=== PATIENT | female | born 1980 | race Caucasian/White ===

== ENCOUNTER 2017-12-19 18:26 | Inpatient (IN) | payer OTHER ==
[~2017-12-19] VITALS: Ht 152.4 cm; Wt 60.1 kg
[~2017-12-19 18:26] MED LIST: LEVOTHYROXIN0.075 M1 PO; TRAZODONE HCL100 MG PO
[2017-12-19 18:46] VITALS: Ht 152.4 cm; Wt 60.1 kg
[2017-12-19 19:57] LABS: BASOPHIL % 0.5 % (0-2); PLATELET COUNT 329 x10^3mcL (130-400); RED CELL DISTRIBUTION WIDTH 13.7 % (11.5-14.5)
[2017-12-19 20:06] LABS: CALCIUM 8.7 mg/dL (8.5-10.1); CARBON DIOXIDE 28.2 mmol/L (21-32); CHLORIDE SERUM 103 mmol/L (98-107); CREATININE SERUM 0.6 mg/dL (0.6-1.0); GFR1 > 60 mL/min; GLUCOSE SERUM 86 mg/dL (74-106); POTASSIUM SERUM 3.5 mmol/L (3.5-5.1); SODIUM SERUM 138 mmol/L (136-145)
[2017-12-19 20:10] LABS: ALBUMIN 3.8 g/dL (3.4-5.0); ALKALINE PHOSPHATASE 70 U/L (46-116); ALT/SGPT 18 U/L (14-59); AST/SGOT 12 U/L (15-37); BILIRUBIN TOTAL 0.2 mg/dL (0.20-1.00); HDL CHOLESTEROL 55 mg/dL (40-60); LIPASE 166 IU/L (73-393); TOTAL PROTEIN, SERUM 7.6 g/dL (6.4-8.2); TRIGLYCERIDES 56 mg/dL (<150)
[2017-12-19 20:23] LABS: CHOLESTEROL 128 mg/dL (<200); CHOLESTEROL/HDL RATIO 2.3; T3 TOTAL 1.06 ng/mL
[2017-12-19 20:24] LABS: FREE T4 1.66 ng/dL (0.76-1.46); FREE THYROXINE INDEX 4.1 ug/dL (1.4-4.5); T4(THYROXINE) 11.7 ug/dL (4.7-13.3)
[2017-12-19 23:23] LABS: microscopic required? NO
[2017-12-19 23:39] LABS: UA SPECIFIC GRAVITY <=1.005 (1.005-1.035); urine erythrocyte NEGATIVE (NEGATIVE)
[2017-12-19 23:52] LABS: AMPHETAMINE QUAL UR NONE DETECTED (See below)
[2017-12-20 01:26] VITALS: BP 98/68
[2017-12-20 02:02] LABS: PHOSPHOROUS 4.7 mg/dL (2.5-4.9)
[2017-12-20 05:46] VITALS: BP 95/62
[2017-12-20 06:42] LABS: BASOPHIL % 0.5 % (0-2); PLATELET COUNT 289 x10^3mcL (130-400); RED CELL DISTRIBUTION WIDTH 13.6 % (11.5-14.5)
[2017-12-20 07:06] LABS: CALCIUM 8.3 mg/dL (8.5-10.1); CARBON DIOXIDE 25.9 mmol/L (21-32); CHLORIDE SERUM 107 mmol/L (98-107); CREATININE SERUM 0.6 mg/dL (0.6-1.0); GFR1 > 60 mL/min; GLUCOSE SERUM 80 mg/dL (74-106); POTASSIUM SERUM 3.5 mmol/L (3.5-5.1); SODIUM SERUM 140 mmol/L (136-145)
[2017-12-20 09:15] VITALS: BP 115/78
[2017-12-20 11:33] VITALS: BP 115/78
== END 2017-12-20 12:05 | disposition home or self-care (01) | DRG 203 ==
LOC: ED 18:26 → DU 12-20 00:24
PROVIDERS: Family Medicine; Specialist
DX: M94.0 Chondrocostal junction syndrome [Tietze] (principal); E89.0 Postprocedural hypothyroidism; R53.1 Weakness; J45.20 Mild intermittent asthma, uncomplicated; Z73.3 Stress, not elsewhere classified; Z86.73 Personal history of transient ischemic attack (TIA), and cerebral infarction without residual deficits; Z88.6 Allergy status to analgesic agent; Z88.0 Allergy status to penicillin; Z88.8 Allergy status to other drugs, medicaments and biological substances; Z90.710 Acquired absence of both cervix and uterus; F32.9 Major depressive disorder, single episode, unspecified; G43.909 Migraine, unspecified, not intractable, without status migrainosus; Z85.43 Personal history of malignant neoplasm of ovary
CPT/HCPCS: 83880; 84439; J2270; J2405; J3010; J7030; Q0092; Q9967

== ENCOUNTER 2018-03-14 08:56 | Emergency (ER) | payer OTHER ==
[~2018-03-14] VITALS: Ht 152.4 cm; Wt 57.6 kg
[2018-03-14 09:09] VITALS: Ht 152.4 cm; Wt 57.6 kg
[2018-03-14 10:23] LABS: CALCIUM 9.2 mg/dL (8.5-10.1); CARBON DIOXIDE 25.9 mmol/L (21-32); CHLORIDE SERUM 101 mmol/L (98-107); CREATININE SERUM 0.7 mg/dL (0.6-1.0); GFR1 > 60 mL/min; GLUCOSE SERUM 94 mg/dL (74-106); POTASSIUM SERUM 3.6 mmol/L (3.5-5.1); SODIUM SERUM 138 mmol/L (136-145)
[2018-03-14 10:33] LABS: UA SPECIFIC GRAVITY 1.015 (1.005-1.035); microscopic required? YES; urine erythrocyte TRACE (NEGATIVE)
[2018-03-14 10:41] LABS: ALBUMIN 4.2 g/dL (3.4-5.0); ALKALINE PHOSPHATASE 61 U/L (46-116); ALT/SGPT 29 U/L (14-59); AST/SGOT 16 U/L (15-37); BILIRUBIN TOTAL 0.4 mg/dL (0.20-1.00)
[2018-03-14 10:42] LABS: TOTAL PROTEIN, SERUM 8.3 g/dL (6.4-8.2)
[2018-03-14 10:51] LABS: AMPHETAMINE QUAL UR NONE DETECTED (See below)
[2018-03-14 10:54] LABS: BASOPHIL % 0.2 % (0-2); PLATELET COUNT 275 x10^3mcL (130-400); RED CELL DISTRIBUTION WIDTH 13.7 % (11.5-14.5)
[2018-03-14 11:42] VITALS: BP 99/68
== END 2018-03-14 11:42 | disposition home or self-care (01) ==
LOC: ED 08:56
PROVIDERS: Emergency Medicine
DX: J11.1 Influenza due to unidentified influenza virus with other respiratory manifestations (principal); M54.5 Low back pain
CPT/HCPCS: 87804; J1885; J2405

== ENCOUNTER 2018-09-13 02:40 | Emergency (ER) | payer OTHER ==
[~2018-09-13] VITALS: Ht 152.4 cm; Wt 63.5 kg
[2018-09-13 02:44] VITALS: Ht 152.4 cm; Wt 63.5 kg
[2018-09-13 03:17] LABS: BASOPHIL % 0.3 % (0-2); PLATELET COUNT 283 x10^3mcL (130-400); RED CELL DISTRIBUTION WIDTH 13.1 % (11.5-14.5)
[2018-09-13 03:57] LABS: CALCIUM 8.8 mg/dL (8.5-10.1); CHLORIDE SERUM 107 mmol/L (98-107); CREATININE SERUM 0.7 mg/dL (0.6-1.0); GFR1 > 60 mL/min; GLUCOSE SERUM 97 mg/dL (74-106); POTASSIUM SERUM 3.5 mmol/L (3.5-5.1); SODIUM SERUM 142 mmol/L (136-145)
[2018-09-13 04:02] LABS: ALBUMIN 3.7 g/dL (3.4-5.0); ALKALINE PHOSPHATASE 92 U/L (46-116); ALT/SGPT 14 U/L (14-59); AST/SGOT 8 U/L (15-37); BILIRUBIN TOTAL 0.22 mg/dL (0.20-1.00); LIPASE 139 IU/L (73-393); TOTAL PROTEIN, SERUM 7.3 g/dL (6.4-8.2)
[2018-09-13 05:30] VITALS: BP 97/56
== END 2018-09-13 05:30 | disposition home or self-care (01) ==
LOC: ED 02:40
PROVIDERS: Emergency Medicine
DX: R10.9 Unspecified abdominal pain (principal); M62.830 Muscle spasm of back; J45.909 Unspecified asthma, uncomplicated; F32.9 Major depressive disorder, single episode, unspecified; G43.909 Migraine, unspecified, not intractable, without status migrainosus; Z90.712 Acquired absence of cervix with remaining uterus; Z85.43 Personal history of malignant neoplasm of ovary; Z88.0 Allergy status to penicillin; Z88.6 Allergy status to analgesic agent; Z88.5 Allergy status to narcotic agent
CPT/HCPCS: J1885; J2270; J2405

== ENCOUNTER 2018-11-19 10:45 | Emergency (ER) | payer OTHER ==
[~2018-11-19] VITALS: Ht 152.4 cm; Wt 54.9 kg
[2018-11-19 10:48] VITALS: Ht 152.4 cm; Wt 54.9 kg
[2018-11-19 11:29] LABS: BASOPHIL % 0.4 % (0-2); PLATELET COUNT 274 x10^3mcL (130-400); RED CELL DISTRIBUTION WIDTH 13.4 % (11.5-14.5)
[2018-11-19 11:31] LABS: CALCIUM 8.8 mg/dL (8.5-10.1); CARBON DIOXIDE 27.7 mmol/L (21-32); CHLORIDE SERUM 106 mmol/L (98-107); CREATININE SERUM 0.5 mg/dL (0.6-1.0); GFR1 > 60 mL/min; GLUCOSE SERUM 85 mg/dL (74-106); POTASSIUM SERUM 3.8 mmol/L (3.5-5.1); SODIUM SERUM 142 mmol/L (136-145)
[2018-11-19 11:36] LABS: ALKALINE PHOSPHATASE 67 U/L (46-116); ALT/SGPT 13 U/L (14-59); AST/SGOT 17 U/L (15-37); BILIRUBIN TOTAL 0.48 mg/dL (0.20-1.00); TOTAL PROTEIN, SERUM 7.6 g/dL (6.4-8.2)
[2018-11-19 12:32] VITALS: BP 120/75
== END 2018-11-19 12:32 | disposition home or self-care (01) ==
LOC: ED 10:45
PROVIDERS: Emergency Medicine
DX: M79.89 Other specified soft tissue disorders (principal); M54.12 Radiculopathy, cervical region; J45.909 Unspecified asthma, uncomplicated; G43.909 Migraine, unspecified, not intractable, without status migrainosus; F32.9 Major depressive disorder, single episode, unspecified; Z88.0 Allergy status to penicillin; Z88.6 Allergy status to analgesic agent; Z88.5 Allergy status to narcotic agent; Z90.711 Acquired absence of uterus with remaining cervical stump; Z98.890 Other specified postprocedural states
CPT/HCPCS: J1885; Q0092

== ENCOUNTER 2019-07-16 10:57 | Emergency (ER) | payer OTHER ==
[~2019-07-16] VITALS: Ht 157.5 cm; Wt 61.2 kg
[2019-07-16 11:13] VITALS: Ht 157.5 cm; Wt 61.2 kg
[2019-07-16 12:07] LABS: microscopic required? YES; urine erythrocyte TRACE (NEGATIVE)
[2019-07-16 12:07] LABS: BASOPHIL % 0.4 % (0-2); PLATELET COUNT 323 x10^3mcL (130-400); RED CELL DISTRIBUTION WIDTH 12.7 % (11.5-14.5)
[2019-07-16 13:34] LABS: CALCIUM 9.2 mg/dL (8.5-10.1); CARBON DIOXIDE 28.1 mmol/L (21-32); CHLORIDE SERUM 103 mmol/L (98-107); CREATININE SERUM 0.6 mg/dL (0.6-1.0); GFR1 > 60 mL/min; GLUCOSE SERUM 86 mg/dL (74-106); POTASSIUM SERUM 4.3 mmol/L (3.5-5.1); SODIUM SERUM 139 mmol/L (136-145)
[2019-07-16 13:39] LABS: ALBUMIN 4.1 g/dL (3.4-5.0); ALKALINE PHOSPHATASE 59 U/L (46-116); ALT/SGPT 17 U/L (14-59); AST/SGOT 12 U/L (15-37); BILIRUBIN TOTAL 0.38 mg/dL (0.20-1.00); LIPASE 120 IU/L (73-393); TOTAL PROTEIN, SERUM 7.7 g/dL (6.4-8.2)
[2019-07-16 15:21] VITALS: BP 101/74
== END 2019-07-16 15:21 | disposition home or self-care (01) ==
LOC: ED 10:57
PROVIDERS: Emergency Medicine
DX: R10.13 Epigastric pain (principal); J45.901 Unspecified asthma with (acute) exacerbation; F32.9 Major depressive disorder, single episode, unspecified; E03.9 Hypothyroidism, unspecified; F17.210 Nicotine dependence, cigarettes, uncomplicated; G43.909 Migraine, unspecified, not intractable, without status migrainosus; Z71.6 Tobacco abuse counseling; Z90.710 Acquired absence of both cervix and uterus; Z86.73 Personal history of transient ischemic attack (TIA), and cerebral infarction without residual deficits; Z88.0 Allergy status to penicillin; Z88.6 Allergy status to analgesic agent; Z88.5 Allergy status to narcotic agent
CPT/HCPCS: 99406; J2405; J3490; Q9967

== ENCOUNTER 2019-07-17 02:06 | Inpatient (IN) | payer OTHER ==
[~2019-07-17] VITALS: Ht 152.4 cm; Wt 62.7 kg
[2019-07-17 02:14] VITALS: Ht 152.4 cm; Wt 62.7 kg
--- NOTE | 2019-07-17 02:45 | NUR ---
PT PRESENTS TO THE ED WITH C/O BUQ ABD THROBBING PAIN X4 DAYS. PER THE PT, SHE WAS HERE YESTERDAY FOR THE SAME SYMPTOMS AND WAS DC WITH A MEDICATION FOR GERD AND PEPTIC ULCERS, UNABLE TO RECALL NAME. PT DENIES TAKING ANY PAIN MEDICATED AT HOME. PT STS, " I FEEL LIKE I GOT PUNCHED IN THE STOMACH AND FEEL LIKE MY AIR WAS TAKEN OUT. I FEEL SOB.". PT'S SPO2 98% ON RA. PT ALSO C/O NAUSEA.
[2019-07-17 03:15] LABS: BASOPHIL % 0.6 % (0-2); PLATELET COUNT 322 x10^3mcL (130-400); RED CELL DISTRIBUTION WIDTH 12.6 % (11.5-14.5)
[2019-07-17 03:54] LABS: CALCIUM 8.5 mg/dL (8.5-10.1); CARBON DIOXIDE 25.4 mmol/L (21-32); CHLORIDE SERUM 104 mmol/L (98-107); CREATININE SERUM 0.6 mg/dL (0.6-1.0); GFR1 > 60 mL/min; GLUCOSE SERUM 92 mg/dL (74-106); POTASSIUM SERUM 3.4 mmol/L (3.5-5.1); SODIUM SERUM 138 mmol/L (136-145)
[2019-07-17 03:59] LABS: ALBUMIN 3.8 g/dL (3.4-5.0); ALKALINE PHOSPHATASE 58 U/L (46-116); ALT/SGPT 16 U/L (14-59); AST/SGOT 12 U/L (15-37); BILIRUBIN TOTAL 0.43 mg/dL (0.20-1.00); LIPASE 128 IU/L (73-393); TOTAL PROTEIN, SERUM 7.1 g/dL (6.4-8.2)
--- NOTE | 2019-07-17 04:30 | NUR ---
PT C/O PAIN TO RAC IV. FLUSHED 10 ML OF NS WITH NO S/S OF INFILTRATION NOTED, PT STS IT FEELS LIKE IT IS BURNING. RAC IV REMOVED AND NEW IV ESTRABLISHED TO THE LAC 20 GAUGE, FLUSHED 10 ML OF NS WITH NO S/S OF INFILTRATION NOTED.
--- NOTE | 2019-07-17 04:58 | NUR ---
PT ASSISTED TO THE RESTROOM, AMBULATED WITH A STEADY GAIT. ASSISTED BACK IN BED. CONNECTED TO FULL AIR TUBE RELEASER/CONTINOUS PULSE OXIMETRY
--- NOTE | 2019-07-17 05:30 | NUR ---
PT STS SHE GETS HIVES WHEN SHE TAKES HYDROCODONE. REPORTS SHE HAS TAKEN MORPHINE BEFORE WITH NO ADVERSE REACTION. DR. PAUL MADE AWARE
--- NOTE | 2019-07-17 05:50 | NUR ---
REPORT GIVEN TO PHU BARR FOR CONTINUITY OF CARE. ALL QUESTIONS/CONCERNS ADDRESSED.
--- NOTE | 2019-07-17 06:02 | NUR ---
PT TRANSFERRED AT THIS TIME VIA WHEELCHAIR. PT IS A/OX4. BREATHING IS E/U ON RA. LAC IV INTACT/SECURED, NO S/S OF INFILTRATION NOTED. NO ADVERSE EFFECT NOTED POST MORPHINE ADMINISTRATION. NO S/S OF ACUTE DISTRESS NOTED. PHU [facility] TO ASSUME CARE
[2019-07-17 06:07] VITALS: BP 96/51
--- NOTE | 2019-07-17 06:13 | NUR ---
RECEIVED PT FROM ER VIA WC, PT SEEN, ALERT AND ORIENTED X 4, VERY VERABLLY RESPONSIVE, DENIES HEADACHE OR DIZZINESS, BREATHING EVEN AND UNLABORED, LUNG SOUNDS CLEAR, ON ROOM AIR WITH NO RESP DISTRESS NOTED, MEDSURG PT, DENIES CHEST PAIN, PULSES PALPABLE, NO EDEMA NOTED, AMBULATORY WITH STEADY GAIT, ABD SOFT AND FLAT WITH ACTIVE BS, NO BM AT THIS TIME, C/O OF ABD PAIN WITH N/V FOR 4 DAYS, VOIDING FREELY, NO DISTRESS NOTED, WILL KEEP TO MONITOR.
--- NOTE | 2019-07-17 06:27 | NUR ---
spoke with dr barrios, no futhur orders at this time.
--- NOTE | 2019-07-17 07:04 | NUR ---
REPORT GIVEN TO MARIA [facility], ALL QUESTIONS ANSWERED AND CONCERNS ADDRESSED.
[2019-07-17 07:52] VITALS: BP 87/54
--- NOTE | 2019-07-17 07:57 | NUR ---
RECEVIED PT FROM PM NURSE. PATIENT WAS SEEN UP AND AMBULATING IN HER ROOM. PT IS A/O X 4. COOPERATIVE. NO SOB OR FACIAL DISTRESS NOTED. NO C/O PAIN. PATIENT IS MED SURG. DENIES C/P AND DIZZINESS. PULSES ARE EVEN AND PALPABLE. NO EDEMA NOTED. LUNG SOUNDS CTA ON RA. BOWEL SOUNDS ARE NORMACTIVE X4 QUADRANT. LAST BM WAS ON 07/16/19. HAS BRP, AND VOIDS FREELY. SKIN INTACT. IV ON LAC. SITE IS PATENT AND FREE FROM SIGNS OF INFECTION. BED AT THE LOWEST POSITION. INSTRUCTED PT TO USE THE CALL LIGHT SHOULD ASSISTANCE BE NEEDED. WILL CONTINUE TO MONITOR.
--- NOTE | 2019-07-17 08:15 | NUR ---
RECEIVED PATIENT FROM [facility]. PATIENT OBSERVED WALKING FROM BATHROOM TO BED. SPOKE WITH HER ABOUT PLAN OF CARE TODAY INCLUDING WAITING FOR DR MEAD AND DR CATALAN TO ARRIVE TO SEE PATIENT, PATIENT JUST ADMITTED LAST NIGHT. PATIENT VERBALIZES UNDERSTANDING, NO COMPLAINTS AT THIS TIME. WILL WAIT FOR DR CATALAN PATIENT IS NPO EXCEPT FOR MEDS. RE-EDUCATED PATIENT ON USE OF CALL LIGHT TO CALL FOR STAFF.
[2019-07-17 10:51] LABS: C REACTIVE PROTEIN < 0.2 mg/dL (<=0.9)
--- NOTE | 2019-07-17 11:18 | NUR ---
PT RETURNED FROM EGD IN BED. NO C/O PAIN. WILL CONTINUE TO MONITOR.
[2019-07-17 12:06] VITALS: BP 93/63
--- NOTE | 2019-07-17 12:13 | NUR ---
DR. MEAD ARRIVED. SPOKE TO PT AT BEDSIDE. TOLD HER THAT IF SHE IS ABLE TO TOLERATE HER DIET, SHE CAN GO HOME TODAY. PT VERBALIZED UNDERSTANDING. ALL QUESTIONS ARE ADDRESSED AT THIS POINT. WILL CONTINUE TO MONITOR.
--- NOTE | 2019-07-17 14:53 | NUR ---
INFORMED PT ABOUT THE DISCHARGE ORDER. PT WAS UNABLE TO TOLERATE THE ENTIRETY OF HER LUNCH. ENCOURAGED PT TO TRY AGAIN LATER THIS EVENING WITH THE DINNER TRAY. PT HAD QUESTIONS ABOUT HER DISEASE PROCESS. EDUCATIONAL PAMPHLETS ON GASTRITIS AND DUODENUMITIS PRINTED AND GIVEN TO PT. INSTRUCTED PT TO READ THROUGH THE MATERIAL AND ASK QUESTIONS NEEDED. WILL CONTINUE TO MONITOR.
--- NOTE | 2019-07-17 15:56 | NUR ---
CALLED AND SPOKE TO AND UPDATED HIM OF PT STATUS OF NOT TOLERATING THE DIET AND STILL FEELING NAUSEATED. NEW ORDER RECEIVED REGLAN 5MG IV Q8HRS AND TO CANCEL DISCHARGE HOME. BRAYAN RN AND HOLLY RN ASSIGNED TO THIS PT MADE AWARE OF ABOVE.
--- NOTE | 2019-07-17 16:24 | NUR ---
PT COMPLAINED ABOUT 7/10 ABD PAIN. ADMINISTERED REGLAN ORDERED. WHEN ASKED WHAT SHE USUALLY TAKES AT HOME TO ALLEVIATE HER PAIN. SHE SAID SHE DOES NOT LIKE TAKING MEDICATION AT HOME. WILL CONTINUE TO MONITOR ON THE EFFECTIVENESS OF REGLAN.
[2019-07-17 17:10] VITALS: BP 106/69
--- NOTE | 2019-07-17 17:46 | NUR ---
IV ATIVAN 1 MG ADMINISTERED TO PATIENT PATIENT STATES SHE IS STILL HAVING STOMACH PAIN AND SORENESS BUT REFUSES PAIN MEDICATION. ALSO, PRN PAIN MEDICATION IS LIMITED DUE TO PATIENT ALLERGIES, AND ATIVAN GIVEN. NOW STATES THAT SHE IS FEELING BETTER AND ASKS TO GO HOME. EATING SMALL AMOUNTS OF DINNER TRAY AND TOLERATING. WILL CHECK WITH DR CATALAN AND DR MEAD PATIENT WAS CLEARED FOR DISCHARGE THIS AFTERNOON DEPENDING ON FOOD TOLERANCE BUT ABDOMINAL PAIN PRESENT PRIOR TO ATIVAN.
--- NOTE | 2019-07-17 19:38 | NUR ---
REPORT GIVEN TO PM NURSE. ALL QUESTIONS AND CONCERNS ANSWERED.
--- NOTE | 2019-07-17 19:46 | NUR ---
PT SEEN, ALERT AND ORIENTED X 4, VERY VERABLLY RESPONSIVE, DENIES HEADACHE OR DIZZINESS, BREATHING EVEN AND UNLABORED, LUNG SOUNDS CLEAR, ON ROOM AIR WITH NO RESP DISTRESS NOTED, MEDSURG PT, DENIES CHEST PAIN, PULSES PALPABLE, NO EDEMA NOTED, AMBULATORY WITH STEADY GAIT, ABD SOFT AND FLAT WITH ACTIVE BS, NO BM AT THIS TIME, C/O OF ABD PAIN WITH N/V AT TIMES, UNABLE TO TOLERATED REGULAR DIET AT THIS TIME, VOIDING FREELY, NO DISTRESS NOTED, WILL KEEP TO MONITOR.
[2019-07-17 21:10] VITALS: BP 105/64
[2019-07-18 05:49] VITALS: BP 92/61
--- NOTE | 2019-07-18 05:55 | NUR ---
PT ASLEEP BUT EASILY AROUSABLE, SLEPT WITH LONG INTERVAL THROUGHOUT THE NIGHT, NO C/O OF ABD PAIN OR N/V SINCE BEGINNING OF SHIFT, PT STATED FEELING BETTER THIS MONING, NO DISTRESS NOTED, WILL KEEP TO MONITOR.
--- NOTE | 2019-07-18 07:08 | NUR ---
REPORT GIVEN TO UMBERTO, ALL QUESTIONS ANSWERED AND CONCERSN ADDRESSED.
--- NOTE | 2019-07-18 08:00 | NUR ---
SHIFT ASSESSMENT DONE. PATIENT A/A/OX4; NO RESP DSITRESS ON RA. DENIED CHEST PAIN AND ABD PAIN. FINISHED 15% OF REGULAR DIET BREAKFAST. NO N/V. IVHL'D TO LAC, PATENT. CONTINUE MONITOR. CALL LIGHT IN REACH.
[2019-07-18 08:44] VITALS: BP 95/64
[2019-07-18 10:32] VITALS: BP 95/64
--- NOTE | 2019-07-18 11:50 | NUR ---
NOTIFED DR. MEAD WITH PATIENT'S POTASSIUM LEVEL WAS 3.4. NEW ORDER OF KCL 40MEQ PO GIVEN.
--- NOTE | 2019-07-18 12:40 | NUR ---
DENIED ABD PAIN. NO N/V. D/C TO HOME PER ORDER. INSTRUCTION GIVEN. IV D/C'D. OVER NEEDLE CATH INTACT. CONDITION STABLE.
== END 2019-07-18 12:40 | disposition home or self-care (01) | DRG 241 ==
LOC: ED 02:06 → MU 05:31
PROVIDERS: Internal Medicine Gastroenterology; ADMIT Internal Medicine; ATTEND Internal Medicine
PROC: 0DB78ZX Excision of Stomach, Pylorus, Via Natural or Artificial Opening Endoscopic, Diagnostic (ICD-10-PCS; principal; 2019-07-17 10:00)
DX: K25.9 Gastric ulcer, unspecified as acute or chronic, without hemorrhage or perforation (principal); B96.81 Helicobacter pylori [H. pylori] as the cause of diseases classified elsewhere; E03.9 Hypothyroidism, unspecified; F12.90 Cannabis use, unspecified, uncomplicated; J45.909 Unspecified asthma, uncomplicated; F32.9 Major depressive disorder, single episode, unspecified; R63.0 Anorexia; G43.909 Migraine, unspecified, not intractable, without status migrainosus; K21.9 Gastro-esophageal reflux disease without esophagitis; Z86.73 Personal history of transient ischemic attack (TIA), and cerebral infarction without residual deficits; Z90.710 Acquired absence of both cervix and uterus; Z88.8 Allergy status to other drugs, medicaments and biological substances; Z88.6 Allergy status to analgesic agent; Z88.0 Allergy status to penicillin; Z79.899 Other long term (current) drug therapy
CPT/HCPCS: 43235; C9113; G0378; J1200; J1610; J2060; J2250; J2270; J2310; J2765; J3010; J3490

== ENCOUNTER 2019-08-13 16:37 | Emergency (ER) | payer OTHER ==
[~2019-08-13] VITALS: Ht 157.5 cm; Wt 5.9 kg
[2019-08-13 17:02] VITALS: Ht 157.5 cm; Wt 5.9 kg
[2019-08-13 19:34] VITALS: BP 111/74
== END 2019-08-13 18:05 | disposition home or self-care (01) ==
LOC: ED 16:37
DX: M54.42 Lumbago with sciatica, left side (principal); G43.909 Migraine, unspecified, not intractable, without status migrainosus; Z90.710 Acquired absence of both cervix and uterus; Z90.89 Acquired absence of other organs; Z86.73 Personal history of transient ischemic attack (TIA), and cerebral infarction without residual deficits; Z88.0 Allergy status to penicillin; Z88.6 Allergy status to analgesic agent; Z88.5 Allergy status to narcotic agent

== ENCOUNTER 2019-11-15 13:14 | Emergency (ER) | payer OTHER ==
[~2019-11-15] VITALS: Ht 149.9 cm; Wt 59.9 kg
[2019-11-15 13:54] VITALS: Ht 149.9 cm; Wt 59.9 kg
[2019-11-15 14:20] VITALS: BP 108/74
== END 2019-11-15 14:20 | disposition home or self-care (01) ==
LOC: ED 13:14
DX: S30.861A Insect bite (nonvenomous) of abdominal wall, initial encounter (principal); L08.9 Local infection of the skin and subcutaneous tissue, unspecified; J45.909 Unspecified asthma, uncomplicated; G43.909 Migraine, unspecified, not intractable, without status migrainosus; Z86.73 Personal history of transient ischemic attack (TIA), and cerebral infarction without residual deficits; Z90.710 Acquired absence of both cervix and uterus; Z88.0 Allergy status to penicillin; Z88.6 Allergy status to analgesic agent; Z88.8 Allergy status to other drugs, medicaments and biological substances; Z91.040 Latex allergy status; W57.XXXA Bitten or stung by nonvenomous insect and other nonvenomous arthropods, initial encounter; Y93.89 Activity, other specified; Y92.89 Other specified places as the place of occurrence of the external cause; Y99.8 Other external cause status